=== PATIENT | female | born 1985 | race Caucasian/White ===

== ENCOUNTER 2021-11-06 10:56 | Emergency (ER) | payer MEDICAID ==
[~2021-11-06] VITALS: Ht 165.1 cm; Wt 68.0 kg
[2021-11-06 10:59] VITALS: BP 136/95
--- NOTE | 2021-11-06 11:50 | NUR ---
pt c/o issues with c section wound. no active bleeding or dc. pending er md blackmon
[2021-11-06] MEDS ORDERED: BACITRACIN OINT 500 UNITS/GM PKT TP ONE (12:29)
[2021-11-06] MEDS: BACITRACIN OINT 500 UNITS/GM PKT TP ONE (12:38)
[2021-11-06] MEDS ORDERED: BACTO TP (12:39)
--- NOTE | 2021-11-06 12:47 | NUR ---
Patient discharged with v/s stable. Written and verbal after care instructions given and explained. Patient verbalized understanding. Ambulatory with steady gait. All questions addressed prior to discharge. Advised to follow up with PMD.
== END 2021-11-06 12:47 | disposition home or self-care (01) ==
LOC: MED 10:56
DX: T81.31XA Disruption of external operation (surgical) wound, not elsewhere classified, initial encounter (principal); Z48.00 Encounter for change or removal of nonsurgical wound dressing; X58.XXXA Exposure to other specified factors, initial encounter; Y93.89 Activity, other specified; Y92.89 Other specified places as the place of occurrence of the external cause; Y99.8 Other external cause status
CPT/HCPCS: 99282